=== PATIENT | female | born 1965 | race Caucasian/White ===

== ENCOUNTER 2018-01-30 15:53 | Emergency (ER) | payer MEDICAID, OTHER ==
[2018-01-30] MEDS: AMOXICILLIN 500 MG CAP PO (16:33)
[2018-01-30] MEDS: IBUPROFEN 800 MG TAB PO (16:33)
== END 2018-01-30 17:41 | disposition home or self-care (01) ==
LOC: E/R 15:53
DX: J02.9 Acute pharyngitis, unspecified (principal); R55 Syncope and collapse; I10 Essential (primary) hypertension
CPT/HCPCS: 71045; 93005; 99284-25

== ENCOUNTER 2018-01-31 12:26 | Emergency (ER) | payer MEDICAID ==
[2018-01-31] MEDS: SOD CHLORIDE 0.9% 1,000 ML IV (13:05)
[2018-01-31 13:06] LABS: ADD MAN DIFF? NO
[2018-01-31 13:08] LABS: BASOPHILS % 0.6 % (0.0-2.0); EOSINOPHILS # 0.2 10^3/ul (0.0-0.5); EOSINOPHILS % 2.8 % (0.0-7.0); HEMATOCRIT 37.7 % (37.0-47.0); HEMOGLOBIN 12.5 g/dl (12.0-16.0); LYMPHOCYTES # 1.9 10^3/ul (0.8-2.9); LYMPHOCYTES % 27.9 % (15.0-51.0); MEAN CORPUSCULAR HGB CONC 33.2 g/dl (32.0-37.0); MEAN CORPUSCULAR VOLUME 87.5 fl (82.0-101.0); MEAN PLATELET VOLUME 9.4 fl (7.4-10.4); MONOCYTE # 0.4 10^3/ul (0.3-0.9); MONOCYTES % 5.2 % (0.0-11.0); NEUTROPHIL # 4.2 10^3/ul (1.6-7.5); NEUTROPHILS % 62.5 % (39.0-77.0); PLATELET COUNT 278 10^3/UL (140-415); RED BLOOD COUNT 4.31 10^6/ul (4.20-5.40); RED CELL DISTRIBUTION WIDTH 13.3 % (11.5-14.5)
[2018-01-31 13:08] LABS: WHITE BLOOD COUNT 6.8 10^3/ul (4.8-10.8)
[2018-01-31 13:29] LABS: INR 0.96; PROTIME 12.9 Sec (11.9-14.9)
[2018-01-31 13:30] LABS: PARTIAL THROMBOPLASTIN TIME 25.3 Sec (25.0-35.0)
[2018-01-31 13:45] LABS: ADD UMIC YES; UR ASCORBIC ACID NEGATIVE (NEGATIVE); UR BILIRUBIN (Dip) NEGATIVE (NEGATIVE); UR BLOOD (Dip) 1+ mg/dL (NEGATIVE); UR CLARITY CLEAR (CLEAR); UR COLOR YELLOW (YELLOW); UR GLUCOSE (Dip) NEGATIVE (NEGATIVE); UR KETONES (Dip) NEGATIVE (NEGATIVE); UR LEUKOCYTE ESTERASE (Dip) 3+ Leu/ul (NEGATIVE); UR NITRITE (Dip) NEGATIVE (NEGATIVE); UR RBC 5 /HPF (0-5); UR SPECIFIC GRAVITY (Dip) 1.012 (1.003-1.030); UR SQUAMOUS EPITHELIAL CELL FEW /HPF (FEW); UR TOTAL PROTEIN (Dip) NEGATIVE (NEGATIVE); UR UROBILINOGEN (Dip) NEGATIVE (NEGATIVE); UR WBC 13 /HPF (0-5)
[2018-01-31 14:30] LABS: ACETAMINOPHEN < 10.0 ug/ml (10.0-30.0)
[2018-01-31 14:39] LABS: AMPHETAMINE/METHAMPHETAMINE Negative (NEGATIVE); BARBITURATES Negative (NEGATIVE); BENZODIAZEPINES Negative (NEGATIVE); CANNABINOIDS Positive (NEGATIVE); COCAINE Negative (NEGATIVE); OPIATES Negative (NEGATIVE)
[2018-01-31 14:47] LABS: SALICYLATE < 1.0 mg/dl (5.0-30.0)
[2018-01-31 15:13] LABS: ALANINE AMINOTRANSFERASE 16 IU/L (13-69); ALBUMIN 4.2 g/dl (3.3-4.9); ALBUMIN/GLOBULIN RATIO 1.02; ALKALINE PHOSPHATASE 116 IU/L (42-121); ANION GAP 16 (8-16); ASPARTATE AMINO TRANSFERASE 18 IU/L (15-46); BILIRUBIN,INDIRECT 0.3 mg/dl (0-1.1); BILIRUBIN,TOTAL 0.3 mg/dl (0.2-1.3); BLOOD UREA NITROGEN 12 mg/dl (7-20); CALCIUM 9.2 mg/dl (8.4-10.2); CARBON DIOXIDE 26 mmol/L (21-31); CHLORIDE 108 mmol/L (97-110); GLUCOSE 162 mg/dl (70-220); POTASSIUM 4.5 mmol/L (3.5-5.1); SODIUM 145 mmol/L (135-144); TOTAL PROTEIN 8.3 g/dl (6.1-8.1)
[2018-01-31 15:14] LABS: ETHANOL < 10.0 mg/dl
[2018-01-31] MEDS: CEFTRIAXONE 1 GM/50 ML (PMX) 50 ML IVPB (15:58)
== END 2018-01-31 18:15 | disposition home or self-care (01) ==
LOC: E/R 12:26
DX: F32.9 Major depressive disorder, single episode, unspecified (principal); N30.00 Acute cystitis without hematuria; I10 Essential (primary) hypertension; B20 Human immunodeficiency virus [HIV] disease
CPT/HCPCS: 80053; 80307; 81001; 81025; 85025; 85610; 85730; 87086; 96374; 99284-25